=== PATIENT | female | born 1980 | race Caucasian/White ===

== ENCOUNTER → 2021-05-18 | Outpatient (CLI) | payer OTHER ==
--- NOTE | 2021-05-18 11:57 | RAD ---
CLINICAL HISTORY: Advanced maternal age, multigravida, third trimester. COMPARISON: None available. TECHNIQUE: Multiple grayscale images, color Doppler, and M-mode images of the uterus are obtained. Bi ophysical profile was performed. FINDINGS: The lie is cephalic. Cervix measures 3. 1 cm. No evidence of previa. CHARLIE: 21.6 cm Heart Rate:150 bpm BREATHIN MOVEMENT: 2 TONE: 2 FLUID: 2 BIOPHYSICAL PROFILE SCORE: 8/8 IMPRESSION: Normal biophysical profile, score: 8/8. Electronically signed by: Guido Mendiola MD (05/18/2021 11:54 AM) [id number]
== END ==
LOC: US 10:42
PROVIDERS: ATTEND Obstetrics & Gynecology
DX: O09.523 Supervision of elderly multigravida, third trimester (principal); Z3A.00 Weeks of gestation of pregnancy not specified
CPT/HCPCS: 76819